=== PATIENT | female | born 2005 | race Caucasian/White ===

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

== ENCOUNTER 2024-06-01 03:57 | Emergency (ER) | payer MEDICAID, SELFPAY ==
[2024-06-01] VITALS (10 sets, daily range): BP systolic 81–147; BP diastolic 59–103; PULSE 66–95; RESP 12–26; TEMP 36.5; O2SAT 98–100
--- NOTE | 2024-06-01 03:45 | RT.EKG_ITS ---
APPROVED REPORT Exam: Resting ECG Reason for Exam: chest pain Patient Location: E HR:85 bpm ECG Measurements Heart Rate 85 AXIS ID 164 P 60 QRSd 82 QRS 23 QT 346 T 39 QTc 411 Conclusion Sinus rhythm...normal P axis, V-rate 60- 99 Abnormal Q suggests anterior infarct...Q >30mS in V2-V4 Physician: no stemi, QT normal
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
[2024-06-01 04:39] LABS: Troponin I < 4 ng/L (<or=51)
--- NOTE | 2024-06-01 04:43 | NUR.NOTE ---
I was in patient's chart after she was removed from the tracker to document that I d/c'd patient's IV. Nurse already documented d/c of IV.
== END 2024-06-01 04:42 | disposition home or self-care (01) ==
PROVIDERS: Emergency Provider Student in an Organized Health Care Education/Training Program; PCP Nurse Practitioner Family
DX: R07.9 Chest pain, unspecified (principal); R94.31 Abnormal electrocardiogram [ECG] [EKG]
CPT/HCPCS: 36415; 93005; 93308; 99285; 84484; 93010; 99284